=== PATIENT | female | born 1985 | race African-American/Black ===

== ENCOUNTER 2019-10-22 15:36 | Observation (INO) | payer MEDICAID ==
[~2019-10-22] VITALS: Ht 170.2 cm; Wt 88.5 kg
[2019-10-22] MEDS ORDERED: PNV1TABL50 PO (16:37)
[2019-10-22] MEDS ORDERED: MAGN400T26 PO (16:38)
[2019-10-22] MEDS ORDERED: VIT1TABL86 PO (16:39)
[2019-10-22] MEDS ORDERED: ASPI-1497 PO (16:39)
[2019-10-22] MEDS ORDERED: PROG200C11 PO (16:40)
[2019-10-22] MEDS ORDERED: LACTATED RINGERS 500ML 500 ML IV SCH (17:30)
[2019-10-22 17:50] LABS: BASOPHILS % 0.4 % (0.0-2.0); EOSINOPHILS % 3.1 % (0.0-5.0); HEMATOCRIT. 29.4 % (36.0-48.0); HEMOGLOBIN. 9.3 g/dL (12.0-16.0); MEAN CORPUSCULAR HEMOGLOBIN 20.2 pg (28.0-32.0); MEAN CORPUSCULAR VOLUME 63.8 fL (81.0-99.0); MEAN PLATELET VOLUME 10.3 fl (7.4-10.4); MONOCYTES % 9.3 % (2.0-8.0); NEUTROPHILS % 74.2 % (40.0-76.0); PLATELET 281 x1000/uL (130-400); RED BLOOD CELL COUNT 4.61 mill/uL (4.2-5.4); RED CELL DISTRIBUTION WIDTH 19.4 % (11.6-14.6)
[2019-10-22 18:03] LABS: CHLORIDE 108 mEq/L (98-107)
[2019-10-22 18:14] LABS: D-DIMER 4.13 mg/L FEU (<0.50); INR 0.9; PARTIAL THROMBOPLASTIN TIME 23.8 sec (23.4-31.0); PROTHROMBIN TIME 9.6 sec (9.6-11.0)
[2019-10-22 18:28] LABS: PLATELET ESTIMATE NORMAL
[2019-10-22 18:44] LABS: CLARITY URINE CLEAR (CLEAR); COLOR URINE YELLOW (YELLOW); KETONES URINE 2+ (NEGATIVE); LEUKOCYTE ESTERASE URINE 1+ (NEGATIVE); NITRITE URINE NEGATIVE (NEGATIVE); OCCULT BLOOD URINE NEGATIVE (NEGATIVE); PROTEIN URINE NEGATIVE (NEGATIVE); SPECIFIC GRAVITY URINE 1.012 (1.005-1.030); UROBILINOGEN URINE 0.2 E.U./dL (0.2-1.0)
[2019-10-23] MEDS ORDERED: FERROUS SULFATE 325MG TABLET PO SCH ×2 (09:00)
== END 2019-10-22 21:55 | disposition home or self-care (01) ==
LOC: 8 EST A/PP 15:36
PROVIDERS: ADMIT Specialist; ATTEND Specialist
DX: O26.892 Other specified pregnancy related conditions, second trimester (principal); R51 Headache; Z3A.21 21 weeks gestation of pregnancy
CPT/HCPCS: 36415; 80053; 81003; 84550; 85025; 85379; 85384; 85610; 85730; 99281; G0378

== ENCOUNTER 2019-12-05 04:16 | Observation (INO) | payer MEDICAID ==
[~2019-12-05] VITALS: Ht 170.2 cm; Wt 90.7 kg
[~2019-12-05 04:16] MED LIST: ASPI-1497 PO; MAGN400T26 PO; PNV1TABL50 PO; PROG200C11 PO; VIT1TABL86 PO
[2019-12-05] MEDS ORDERED: FERR-71 PO (05:02)
[2019-12-05] MEDS ORDERED: PREN1TAB78 PO (05:02)
[2019-12-05] MEDS ORDERED: PROG200C11 PO (05:02)
[2019-12-05] MEDS ORDERED: MAGN400C PO (05:02)
== END 2019-12-05 07:15 | disposition home or self-care (01) ==
LOC: 8 EST LDRP 04:16
PROVIDERS: ADMIT Obstetrics & Gynecology; ATTEND Obstetrics & Gynecology
DX: O62.9 Abnormality of forces of labor, unspecified (principal); Z3A.27 27 weeks gestation of pregnancy
CPT/HCPCS: 99281; G0378

== ENCOUNTER 2019-12-24 10:02 | Inpatient (IN) | payer MEDICAID, MEDICARE ==
[~2019-12-24] VITALS: Ht 170.2 cm; Wt 92.5 kg
[~2019-12-24 10:02] MED LIST changes: -ASPI-1497 PO; +FERR-71 PO; +MAGN400C PO; -MAGN400T26 PO; -PNV1TABL50 PO; +PREN1TAB78 PO
[2019-12-24] MEDS ORDERED: LACTATED RINGERS 1,000 ML IV SCH (16:47)
[2019-12-24] MEDS ORDERED: BETAMETHASONE ACET/BETAMET 30 MG/5 ML VIAL IM NR (17:00)
[2019-12-24] MEDS ORDERED: PENICILLIN G POTASSIUM 5 MMU in DEXT 5% WATER 100 ML IV SCH (17:00)
[2019-12-24] MEDS ORDERED: CITRIC ACID/SODIUM CITRATE SOLN 30ML UDC PO NR (17:00)
[2019-12-24] MEDS ORDERED: RHO(D) IMMUNE GLOBULIN 300 MCG/SYR IM ONE (17:00)
[2019-12-24] MEDS ORDERED: MAGNESIUM 4 G PREMIX 100 ML IV SCH (17:00)
[2019-12-24] MEDS ORDERED: ONDANSETRON HCL 4MG/2ML INJ ONE (17:08)
[2019-12-24] MEDS ORDERED: PHENYLEPHRINE HCL 10 MG/ML 1ML (IV VIAL) IV ONE (17:08)
[2019-12-24] MEDS ORDERED: OXYTOCIN 10 UNITS/ML 1ML ONE ×2 (17:08→19:32)
[2019-12-24] MEDS ORDERED: CLINDAMYCIN 900 MG PREMIX 50 ML IV ONE (17:08)
[2019-12-24] MEDS ORDERED: MORPHINE SULFATE/PF 1MG/ML 10ML AMP ONE (17:08)
[2019-12-24] MEDS ORDERED: EPHEDRINE SULFATE 50MG/ML VIAL ONE (17:08)
[2019-12-24] MEDS ORDERED: FENTANYL CITRATE/PF 50MCG/ML 2ML VIAL ONE (17:08)
[2019-12-24] MEDS ORDERED: GLYCOPYRROLATE 0.2 MG/ML 2ML VIAL ONE (17:09)
[2019-12-24 17:35] LABS: BASOPHILS % 0.3 % (0.0-2.0); EOSINOPHILS % 1.9 % (0.0-5.0); HEMATOCRIT. 37.7 % (36.0-48.0); HEMOGLOBIN. 12.8 g/dL (12.0-16.0); MEAN CORPUSCULAR HEMOGLOBIN 25.8 pg (28.0-32.0); MEAN CORPUSCULAR VOLUME 76.1 fL (81.0-99.0); MEAN PLATELET VOLUME 9.8 fl (7.4-10.4); MONOCYTES % 6.3 % (2.0-8.0); NEUTROPHILS % 77.5 % (40.0-76.0); PLATELET 217 x1000/uL (130-400); RED BLOOD CELL COUNT 4.95 mill/uL (4.2-5.4); RED CELL DISTRIBUTION WIDTH 25.7 % (11.6-14.6)
[2019-12-24 17:41] LABS: INR 0.9; PROTHROMBIN TIME 9.9 sec (9.6-11.0)
[2019-12-24 17:59] LABS: PLATELET ESTIMATE NORMAL
[2019-12-24 18:02] LABS: CLARITY URINE CLEAR (CLEAR); COLOR URINE YELLOW (YELLOW); KETONES URINE 3+ (NEGATIVE); LEUKOCYTE ESTERASE URINE NEGATIVE (NEGATIVE); NITRITE URINE NEGATIVE (NEGATIVE); OCCULT BLOOD URINE NEGATIVE (NEGATIVE); PH URINE 6.5 (4.5-8.0); PROTEIN URINE NEGATIVE (NEGATIVE); SPECIFIC GRAVITY URINE 1.012 (1.005-1.030); UROBILINOGEN URINE 0.2 E.U./dL (0.2-1.0)
[2019-12-24 18:13] LABS: *AMPHETAMINES SCREEN URINE NEGATIVE (NEGATIVE); *BARBITURATES SCREEN URINE NEGATIVE (NEGATIVE); *BENZODIAZEPINES SCREEN URINE NEGATIVE (NEGATIVE); *COCAINE SCREEN URINE NEGATIVE (NEGATIVE)
[2019-12-24 18:14] LABS: HEPATITIS B SURFACE ANTIGEN NEGATIVE
[2019-12-24 18:14] LABS: CANNABINOID URINE SCREEN NEGATIVE (NEGATIVE); METHADONE URINE SCREEN NEGATIVE (NEGATIVE); OPIATES URINE SCREEN NEGATIVE (NEGATIVE); PHENCYCLIDINE URINE SCREEN NEGATIVE (NEGATIVE)
[2019-12-24] MEDS ORDERED: MIDAZOLAM HCL 2 MG/2 ML VIAL ONE (19:07)
[2019-12-24] MEDS ORDERED: DIPHENHYDRAMINE 50MG/ML VIAL ONE (19:18)
[2019-12-24] MEDS ORDERED: KETOROLAC 60MG/2ML VIAL IM ONE (19:25)
[2019-12-24] MEDS ORDERED: DIPHENHYDRAMINE 50MG/ML VIAL IV PRN (20:15)
[2019-12-24] MEDS ORDERED: NALOXONE HCL 0.4 MG/ML 1ML VIAL IV PRN (20:15)
[2019-12-24] MEDS ORDERED: NALBUPHINE HCL 10 MG/ML AMP IV PRN (20:15)
[2019-12-24] MEDS ORDERED: PENICILLIN G POTASSIUM 2.5 MMU in DEXTROSE 5% WATER 50 ML IV SCH (21:00)
[2019-12-24] MEDS ORDERED: DEXT 5%/LR + PITOCIN 20UNITS/L 1,000 ML IV SCH (22:00)
[2019-12-24 23:20] VITALS: BP 116/65
[2019-12-24 23:50] VITALS: BP 116/65
[2019-12-25 00:10] VITALS: BP 114/68
[2019-12-25] MEDS: KETOROLAC 30MG/ML VIAL IV SCH ×2 (01:09→06:53)
[2019-12-25 04:00] VITALS: BP 116/72
[2019-12-25 07:06] LABS: HEMATOCRIT. 26.5 % (36.0-48.0); HEMOGLOBIN. 8.9 g/dL (12.0-16.0); MEAN CORPUSCULAR VOLUME 76.9 fL (81.0-99.0); MEAN PLATELET VOLUME 9.7 fl (7.4-10.4); PLATELET 194 x1000/uL (130-400); RED BLOOD CELL COUNT 3.44 mill/uL (4.2-5.4); RED CELL DISTRIBUTION WIDTH 25.4 % (11.6-14.6)
[2019-12-25 08:00] VITALS: BP 114/71
[2019-12-25] MEDS ORDERED: METHYLERGONOVINE MALEATE 0.2 MG/ML IM NR (09:15)
[2019-12-25 10:07] VITALS: BP 112/61
[2019-12-25 10:24] LABS: PLATELET ESTIMATE NORMAL
[2019-12-25 12:00] VITALS: BP 123/62
[2019-12-25] MEDS ORDERED: KETOROLAC 30MG/ML VIAL IV NR (14:14)
[2019-12-25 19:30] VITALS: BP 126/71
[2019-12-25] MEDS: IBUPROFEN 800MG TABLET PO PRN (21:18)
[2019-12-26 04:00] VITALS: BP 101/55
[2019-12-26 06:53] LABS: HEMATOCRIT 23.9 % (36.0-48.0); MEAN CORPUSCULAR HEMOGLOBIN 26.3 pg (28.0-32.0); MEAN CORPUSCULAR VOLUME 78.2 fL (81.0-99.0); PLATELET 174 x1000/uL (130-400); RED BLOOD CELL COUNT 3.06 mill/uL (4.2-5.4); RED CELL DISTRIBUTION WIDTH 25.3 % (11.6-14.6)
[2019-12-26 07:31] VITALS: BP 109/52
[2019-12-26] MEDS: PRENATAL VIT/FE FUMARATE/FA TABLET PO SCH (09:10)
[2019-12-26] MEDS: IBUPROFEN 800MG TABLET PO PRN ×3 (09:11→22:57)
[2019-12-26] MEDS: FERROUS SULFATE 325MG TABLET PO SCH ×3 (09:11→17:39)
[2019-12-26 15:34] VITALS: BP 112/68
[2019-12-26 19:40] VITALS: BP 133/77
[2019-12-27 04:11] VITALS: BP 120/74
[2019-12-27] MEDS: IBUPROFEN 800MG TABLET PO PRN ×2 (04:27→11:16)
[2019-12-27 07:32] VITALS: BP 122/68
[2019-12-27] MEDS: PRENATAL VIT/FE FUMARATE/FA TABLET PO SCH (09:05)
[2019-12-27] MEDS: FERROUS SULFATE 325MG TABLET PO SCH (09:05)
[2019-12-27] MEDS ORDERED: MULT1TAB67 MT (11:31)
[2019-12-27] MEDS ORDERED: IBUP-2030 MT (11:31)
== END 2019-12-27 13:10 | disposition home or self-care (01) | DRG 540 ==
LOC: OBSVTOIN 10:02 → 8 EST A/PP 10:02 → 8 EST LDRP 10:44 → 8EST 22:50
PROVIDERS: ADMIT Obstetrics & Gynecology; ATTEND Obstetrics & Gynecology
PROC: 10D00Z1 Extraction of Products of Conception, Low, Open Approach (ICD-10-PCS; principal; 2019-12-24)
DX: O60.14X0 Preterm labor third trimester with preterm delivery third trimester, not applicable or unspecified (principal); O99.12 Other diseases of the blood and blood-forming organs and certain disorders involving the immune mechanism complicating childbirth; O32.8XX0 Maternal care for other malpresentation of fetus, not applicable or unspecified; O42.913 Preterm premature rupture of membranes, unspecified as to length of time between rupture and onset of labor, third trimester; O99.02 Anemia complicating childbirth; D72.829 Elevated white blood cell count, unspecified; Z37.0 Single live birth; Z3A.31 31 weeks gestation of pregnancy
CPT/HCPCS: 36415; 76805; 76818; 80305; 81003; 85025; 85027; 86592; 86703; 86762; 86850; 86900; 87340; 88307; 99281; C1726; J0702; J1200; J1885; J2210; J2250; J2274; J2370; J2405; J2540; J2590; J3010; J3475; J3490; J7060